=== PATIENT | female | born 1955 | race Caucasian/White ===

== ENCOUNTER 2017-01-25 15:50 | Emergency (ER) | payer MEDICARE ==
[~2017-01-25] VITALS: Ht 167.6 cm; Wt 72.3 kg
[2017-01-25 16:25] VITALS: BP 150/94; PULSE 75; RESP 12; O2SAT 100
--- NOTE | 2017-01-25 18:00 | ED.REPORT ---
HPI-Dental/Mouth Prob Date of Service Jan 25, 2017 ED Provider: Chandana Seo DO The pt is a 61 year old female with a hx of chronic back pain presenting to the ED complaining of left sided mouth pain that she has been feeling for more than a couple of days. She claims to have been taking the pain medication that was prescribed to her for her back, for her mouth pain. The last time she took pain medication was 4 hours ago. She claims that she hasn't slept in 2 days and she cannot eat. The patient claims that she saw her dentist 2 days ago and was given Erythromycin. Nursing Notes Stated Complaint: ABSCESSED FOOT Chief Complaint: Dental Nursing Notes Reviewed: Yes Allergies: Coded Allergies: Penicillins (Verified Allergy, Severe, 01/25/17) acetaminophen (Verified Allergy, Intermediate, 01/25/17) amoxicillin (Verified Allergy, Intermediate, 01/25/17) clavulanic acid (Verified Allergy, Intermediate, 01/25/17) clindamycin (Verified Allergy, Intermediate, 01/25/17) dexamethasone (Verified Allergy, Intermediate, 01/25/17) hydrocodone (Verified Allergy, Intermediate, 01/25/17) General Time Seen by MD: 17:59 Chief Complaint Mouth pain Hx Obtained From: Patient Arrived By: Walk-in Onset Occurred: 4 days ago Symptom Duration: Since onset Location: : Gum maxillary right Quality: Painful Recent Healthcare: No recent doctor visit, No recent hospitalization Similar Sx Previous: No Past Medical History Past Medical History chronic back pain Past Surgical History denies Smoking History Unknown if Ever Smoker Ambulatory Status Independent Review of Systems Constitutional: Denies: Chills Ears / Nose / Throat: Reports: Mouth pain (right sided) Respiratory: Denies: Shortness of breath GI: Denies: Diarrhea, Vomiting Complete sys rev & neg: except as marked. Physical Exam Initial Vital Signs Vital Signs (First) Date Time Temp Pulse Resp B/P Pulse Ox O2 Delivery O2 Flow Rate FiO2 01/25/17 16:25 37.0 75 12 150/94 100 Room Air Initial VS: Reviewed Abdomen / GI: Soft, Non-tender, No guarding, No rebound, No distention Back: No CVA tenderness Lymphatic: No lymphadenopathy Extremities: Vascular intact, Neuro intact ENT: Atraumatic periapical abscess to tooth 10 mild axillary swelling on the left Neck: Atraumatic, Supple, Full range of motion General/Constitutional: Awake, Alert, No acute distress Head / Eyes: Atraumatic, Normocephalic Respiratory / Chest: Atraumatic, Breath sounds NL, Breath sounds = bilat, No respiratory distress Neurologic: Oriented X3, Speech NL Procedures Dental Nerve Block Dental Nerve Block Note: infraorbital nerve block indication periapical abscess 1:1 mixture of lidocaine and bupivicane, total of 3ml Time: 18:30 Block Performed by: ED physician Consent / Setup / Site Prep: Consent from patient, Time-out performed, Hand hygiene observed, Stand sterile technique, Sterile drapes applied Local Anesthesia: Lidocaine 1%, Bupivacaine 0.5% Post-Procedure / Complications: No complications, Condition improved, Tolerated procedure well, Patient stable, No bleeding Incision & Drainage Abscess I & D Abscess: Periapical abscess I&D Time: 19:00 Procedure Performed by: ED physician Consent / Setup / Site Prep: Consent from patient, Time-out performed, Hand hygiene observed, Stand sterile technique, Sterile drapes applied Incised Abscess with Scalpel: #11 Pus Drained: Small, Purulent discharge Post-Procedure / Complications: No complications, Condition improved, Tolerated procedure well, Patient stable Re-Eval/Medical Decision Med Decision/Clinical Course Infraorbital nerve block and periapical abscess incision and drainage with purulent discharge. Re-Evaluation/Progress #1: Time of Eval: 18:30 Re-Evaluation/Progress Note: Patient rechecked. Dental nerve block procedure performed. Re-Evaluation/Progress #2: Time of Eval: 19:00 Re-Evaluation/Progress Note: Patient rechecked. I & D procedure performed. Discussed plan to discharge. Patient understands and agrees with this plan. All question answered at this time. Discharge & Departure Primary Impression: Dental abscess Disposition: Home Discharge Condition All VS Reviewed: Yes Condition: Improved Additional Instructions: While in the ER you had a nerve block and incision and drainage of your dental abscess. Continue your antibiotics. Use [id number] medications as needed for pain. Follow-up with your regular doctor for discussion of refills of your narcotic pain medications. Return to the ER as needed for high fever, severe facial swelling, inability to swallow, or other concerns Referrals: NOPCP (PCP) Scribe Attestation Portions of this note were transcribed by Gabriel Perez. IDr. Seo personally performed the history, physical exam and medical decision-making; I reviewed and confirmed the accuracy of the information in the transcribed note. Signed by: Dona Bai, 01/25/2017 Chandana Seo DO Jan 25, 2017 18:00 Jan 25, 2017 18:11
[2017-01-25] MEDS ORDERED: Lidocaine 2% 50 mL Inj NERVEBLOCK ONE (18:25)
[2017-01-25] MEDS ORDERED: BUPIVACAINE HCL NERVEBLOCK ONE (18:25)
[2017-01-25] MEDS ORDERED: EPINEPHRINE NERVEBLOCK ONE (18:25)
[2017-01-25] MEDS ORDERED: Bupivacaine-MPF 0.5% 30 mL Inj ONE (18:27)
== END 2017-01-25 19:12 | disposition home or self-care (01) ==
LOC: SED 15:50
DX: K04.7 Periapical abscess without sinus (principal); Z88.0 Allergy status to penicillin; Z88.1 Allergy status to other antibiotic agents; Z88.5 Allergy status to narcotic agent; Z88.8 Allergy status to other drugs, medicaments and biological substances